=== PATIENT | male | born 1965 | race Caucasian/White ===

== ENCOUNTER 2016-08-20 10:18 | Emergency (ER) | payer BC ==
[~2016-08-20] VITALS: Ht 182.9 cm; Wt 104.3 kg
[~2016-08-20 10:18] MED LIST: GABAPENTIN300 MG ORAL; MEDROL4 M1 PO; PERCOCET 5-3251 EACH ORAL
[2016-08-20 10:39] VITALS: BP 159/113
[2016-08-20] MEDS ORDERED: Ketorolac 30mg Inj IM ONE (10:45)
[2016-08-20] MEDS ORDERED: Morphine Sulfate 4mg/ml Inj ONE (10:58)
[2016-08-20] MEDS ORDERED: Morphine Sulfate 4mg/ml Inj IM ONE (11:00)
[2016-08-20] MEDS ORDERED: LISINOPRIL5 MG ORAL (11:04)
[2016-08-20 12:00] VITALS: BP 146/98
[2016-08-20 12:04] VITALS: BP 146/98
--- NOTE | 2016-08-20 12:23 | Emergency Room Report ---
History of Present Illness General Chief Complaint: Upper Extremity Injury Source: Patient Present Illness HPI Patient presents emergency department today complaining of right upper extremity pain. Patient had a mechanical fall onto his right elbow. He has significant swelling of his right elbow. Pain limited range of motion. The pain is worse with movement. Patient has not had any trouble before. Symptoms noted to be moderate to severe. Denies any other trauma. No other modifying factors. No other associated signs and symptoms. No other complaints were noted. Allergies: Coded Allergies: No Known Allergies (Unverified , 06/27/13) Patient History Past Medical History: HTN Past Surgical History: none Pertinent Family History: none Social History: Denies: alcohol use, drug use, smoking Reviewed Nursing Documentation: PMH: Agreed, PSxH: Agreed Nursing Documentation-PMH Past Medical History: No History, Except For Hx Hypertension: Yes Review of Systems All Other Systems: negative except mentioned in HPI Physical Exam Vital Signs Date Time Temp Pulse Resp B/P Pulse Ox O2 Delivery O2 Flow Rate FiO2 08/20/16 10:25 98.2 114 20 159/113 95 Room Air Sp02 EP Interpretation: reviewed, normal General Appearance: normal inspection, well appearing, no apparent distress, alert Head: atraumatic Eyes: bilateral eye normal inspection ENT: normal ENT inspection, hearing grossly normal, normal voice Neck: normal inspection, full range of motion, supple, no bony tend Respiratory: normal inspection, lungs clear, normal breath sounds, no respiratory distress, no retraction, no wheezing Cardiovascular #1: regular rate, rhythm, no edema Gastrointestinal: normal inspection, normal bowel sounds, non tender, soft, no guarding, no hernia Genitourinary: no CVA tenderness Musculoskeletal: back normal, inflammation, swelling - left elbow swelling, good distal pulses Neurologic: normal inspection, alert, responsive, speech normal Psychiatric: normal inspection, judgement/insight normal, mood/affect normal Skin: normal inspection, normal color, no rash Procedures Splinting Splinting : Consent: Verbal Location: Right elbow Hand-Made Type: plaster Splint: poserior short Pre-Proc Neuro Vasc Exam: normal Post-Proc Neuro Vasc Exam: normal Patient Tolerated: Well Complications: None Medical Decision Making Diagnostic Impression: Primary Impression: Elbow fracture, right ER Course Patient presents emergency department today status post fall. Differential considerations include fracture dislocation versus strain. Given patient's presentation x-rays are indicated. 3 views of right elbow was obtained. X-ray interpretation: 3 views of right elbow. Indication trauma. Findings: Olecranon fracture with displacement and soft tissue swelling. No evidence dislocation. Interpretation: Acute fracture of the right elbow. Given the patient evidence of fracture patient require splinting. Patient was placed in a posterior mold splint. Patient tolerated the procedure without difficulty. Patient states that he has his own orthopedist to go to and does not require referral. Because patient was significant amount pain patient received Toradol and morphine arrival. He was given intramuscularly. He states he feels better from the injection. Patient is advised to follow up with primary doctor in 2-3 days and return the emergency room for any worsening symptoms and as needed. Last Vital Signs Date Time Temp Pulse Resp B/P Pulse Ox O2 Delivery O2 Flow Rate FiO2 08/20/16 12:04 98.2 86 20 146/98 95 Room Air Status: improved Disposition: HOME, SELF-CARE Condition: Stable Patient Instructions: Elbow Fracture, DANIELLE Ferguson M.D. Aug 20, 2016 12:23
[2016-08-20] MEDS ORDERED: IBUPROFEN600 MG ORAL (13:16)
[2016-08-20] MEDS ORDERED: NORCO 5-325 TA1 EACH ORAL (13:16)
[2016-08-20] MEDS ORDERED: PERCOCET 5-3251 EACH ORAL (13:42)
--- NOTE | 2016-09-01 14:09 | Diagnostic Imaging Report ---
Indications:TRAUMA Technique: Three or 4 views of the right elbow Comparison: None Findings:There is a comminuted fracture of the olecranon and proximal ulna. Fracture fragments are distracted by at least a centimeter. This involves the articular surface. No dislocation. Is overlying soft tissue swelling Impression:Positive for olecranon fracture Findings discussed by phone with Dr. Carpenter in the emergency room at the time of interpretation
== END 2016-08-20 12:05 | disposition home or self-care (01) ==
LOC: EMR 10:40
DX: S42.401A Unspecified fracture of lower end of right humerus, initial encounter for closed fracture (principal); W19.XXXA Unspecified fall, initial encounter; Y93.9 Activity, unspecified; Y92.9 Unspecified place or not applicable; I10 Essential (primary) hypertension
CPT/HCPCS: 29125; 73080; 96372; 99283; J1885; J2270

== ENCOUNTER 2017-05-02 03:07 | Emergency (ER) | payer BC ==
[~2017-05-02] VITALS: Ht 182.9 cm; Wt 115.2 kg
[~2017-05-02 03:07] MED LIST changes: +IBUPROFEN600 MG ORAL; +LISINOPRIL5 MG ORAL; +NORCO 5-325 TA1 EACH ORAL
[2017-05-02] MEDS ORDERED: Tetanus/Diptheria/Pertussis Vaccine 0.5ml Syr IM ONE (03:30)
[2017-05-02] MEDS ORDERED: BACITRACIN15 GM TOPIC (03:55)
[2017-05-02] MEDS ORDERED: KEFLEX500 MG ORAL (03:55)
[2017-05-02 04:00] VITALS: BP 166/94
[2017-05-02 04:14] VITALS: BP 166/94
--- NOTE | 2017-05-02 04:26 | Emergency Room Report ---
History of Present Illness General Chief Complaint: Laceration Source: Patient Present Illness HPI 52-year-old male presents ED status post laceration to the right leg. States that approximately 2 AM he cut his leg with a metal pipe. Tetanus unknown. Patient notes 6/10 pain, sharp, nonradiating. Denies any other injuries. No aggravating relieving factors. Denies any other associated symptoms Allergies: Coded Allergies: No Known Allergies (Unverified , 06/27/13) Patient History Past Medical History: HTN Past Surgical History: none Pertinent Family History: none Social History: Denies: smoking, alcohol use, drug use Immunizations: UTD Reviewed Nursing Documentation: PMH: Agreed, PSxH: Agreed Nursing Documentation-PMH Past Medical History: No Stated History Hx Hypertension: Yes Review of Systems All Other Systems: negative except mentioned in HPI Physical Exam Vital Signs Date Time Temp Pulse Resp B/P (MAP) Pulse Ox O2 Delivery O2 Flow Rate FiO2 05/02/17 03:17 98.1 111 18 166/94 98 Sp02 EP Interpretation: reviewed, normal General Appearance: no apparent distress, alert, GCS 15, non-toxic Head: normocephalic Eyes: bilateral eye normal inspection, bilateral eye PERRL ENT: normal ENT inspection Neck: normal inspection Respiratory: normal inspection Cardiovascular #1: normal inspection Gastrointestinal: normal inspection Rectal: deferred Genitourinary: no CVA tenderness Musculoskeletal: normal inspection Neurologic: alert, oriented x3, responsive, motor strength/tone normal, sensory intact, speech normal Psychiatric: judgement/insight normal, memory normal, mood/affect normal, no suicidal/homicidal ideation Skin: laceration - 2cm flap laceration to R anterior maldonado. no active bleeding Lymphatic: normal inspection Medical Decision Making Diagnostic Impression: Primary Impression: Laceration ER Course Hospital Course 52-year-old M presents to ED s/p laceration R maldonado Clinical course Patient placed on stretcher. After initial history and physical I ordered tetanus shot. Wound is irrigated. approximately 2 cm flap laceration however not deep. Patient declined sutures. Stating he wants only Steri-Strips. I will prescribe antibiotics and bacitracin Diagnosis - laceration Stable and discharged to home with prescription for Keflex, Bacitracin. wound Care instructions given. Followup with PMD. Return to ED if any signs of infection develop Last Vital Signs Date Time Temp Pulse Resp B/P (MAP) Pulse Ox O2 Delivery O2 Flow Rate FiO2 05/02/17 04:14 98.1 18 166/94 98 05/02/17 03:17 111 Status: improved Disposition: HOME, SELF-CARE Condition: Stable Scripts Bacitracin (Bacitracin) 28.4 Gm Oint...g. 1 APPLIC TOPIC THREE TIMES A DAY, #28.4 GM Prov: RAJI MAGALLANES M.D. 05/02/17 Cephalexin* (KEFLEX*) 500 Mg Capsule 500 MG ORAL Q6H, #28 CAP 0 Refills Prov: RAJI MAGALLANES M.D. 05/02/17 Referrals: NON PHYSICIAN (PCP) Patient Instructions: Nonsutured Laceration Care RAJI MAGALLANES M.D. May 02, 2017 04:25
== END 2017-05-02 04:14 | disposition home or self-care (01) ==
LOC: EMR 03:44
DX: S81.811A Laceration without foreign body, right lower leg, initial encounter (principal); W45.8XXA Other foreign body or object entering through skin, initial encounter; Y92.89 Other specified places as the place of occurrence of the external cause; Z23 Encounter for immunization; I10 Essential (primary) hypertension
CPT/HCPCS: 90471; 90715; 99283

== ENCOUNTER 2017-05-04 18:21 | Emergency (ER) | payer BC ==
[~2017-05-04] VITALS: Ht 182.9 cm; Wt 115.2 kg
[~2017-05-04 18:21] MED LIST changes: +BACITRACIN15 GM TOPIC; +KEFLEX500 MG ORAL
[2017-05-04] MEDS ORDERED: HYDROCHLOROTH12.5 M2 ORAL (18:31)
[2017-05-04 18:45] VITALS: BP 151/77
[2017-05-04] MEDS ORDERED: Ketorolac 30mg Inj IV ONE ×2 (19:30→22:00)
[2017-05-04 19:56] LABS: BASOPHILS % (AUTO) 0.8 % (0.0-2.0); EOSINOPHILS % (AUTO) 1.5 % (0.0-3.0); LYMPHOCYTES % (AUTO) 27.2 % (20.0-45.0); MEAN CORPUSCULAR HEMOGLOBIN 30.4 PG (27.0-31.0); MEAN CORPUSCULAR HGB CONC 30.7 G/DL (32.0-36.0); MEAN CORPUSCULAR VOLUME 99 FL (80-99); MEAN PLATELET VOLUME 5.1 FL (6.5-10.1); MONOCYTES % (AUTO) 9.3 % (1.0-10.0); NEUTROPHILS % (AUTO) 61.2 % (45.0-75.0); PLATELET COUNT 315 K/UL (150-450); RED BLOOD COUNT 4.55 M/UL (4.70-6.10); RED CELL DISTRIBUTION WIDTH 12.1 % (11.6-14.8); WHITE BLOOD COUNT 16.3 K/UL (4.8-10.8)
[2017-05-04 19:57] LABS: INR 0.9 (0.9-1.1); PROTHROMBIN TIME 9.5 SEC (9.30-11.50)
[2017-05-04 20:16] LABS: ALANINE AMINOTRANSFERASE 42 U/L (12-78); ALBUMIN/GLOBULIN RATIO 1.1 (1.0-2.7); ANION GAP 8 mmol/L (5-15); ASPARTATE AMINO TRANSFERASE 31 U/L (15-37); CALCIUM 10.5 MG/DL (8.5-10.1); CARBON DIOXIDE 29 MMOL/L (21-32); CHLORIDE 104 MMOL/L (98-107); CREATININE 1.7 MG/DL (0.55-1.30); GLOMERULAR FILTRATION RATE 42.5 mL/min (>60); POTASSIUM 5.3 MMOL/L (3.5-5.1); SODIUM 141 MMOL/L (136-145); TOTAL PROTEIN 7.3 G/DL (6.4-8.2)
[2017-05-04] MEDS ORDERED: Heparin 5000 units/ml inj IV ONE (22:00)
[2017-05-04] MEDS ORDERED: LORazepam 1mg tab ORAL ONE (22:00)
[2017-05-04] MEDS ORDERED: Heparin 25,000u/D5W 500ml 500 ML IV SCH (22:00)
[2017-05-04 22:15] VITALS: BP 151/77
--- NOTE | 2017-05-04 22:29 | Emergency Room Report ---
History of Present Illness General Chief Complaint: Lower Extremity Injury Source: Patient (Lew Lund M.D.) Source: Patient (GUZMAN GAINES) Present Illness HPI The patient is a 52-year-old male presenting for right lower leg pain and swelling. The patient was seen in this emergency department recently for her right leg laceration after he struck his leg on a metal object. He states that he then developed pain and swelling to the calf yesterday which has been worsening. He states that he has had a DVT earlier this year and this feels the same. He was placed on anticoagulation therapy for 3 months. He is not currently on any DVT prevention/treatment. Pain is described as an 8/10 dull ache it is worse with touch and walking. He denies any numbness or tingling. He denies any other symptoms including nausea, vomiting, fever, chills, shortness of breath, cough, hemoptysis, chest pain. He denies smoking, hormone therapy, or known clotting disorder. (GUZMAN GAINES) Allergies: Coded Allergies: No Known Allergies (Unverified , 06/27/13) Patient History Past Medical History: see triage record Pertinent Family History: none Reviewed Nursing Documentation: PMH: Agreed, PSxH: Agreed (GUZMAN GAINES) Nursing Documentation-PMH Past Medical History: No History, Except For Hx Hypertension: Yes (Lew Lund M.D.) Review of Systems All Other Systems: negative except mentioned in HPI (GUZMAN GAINES) Physical Exam Vital Signs Date Time Temp Pulse Resp B/P (MAP) Pulse Ox O2 Delivery O2 Flow Rate FiO2 05/04/17 18:24 97.2 103 16 151/77 97 Room Air (Lew Lund M.D.) Sp02 EP Interpretation: reviewed, normal General Appearance: no apparent distress, alert, GCS 15, non-toxic Head: normocephalic, atraumatic Eyes: bilateral eye normal inspection, bilateral eye PERRL ENT: hearing grossly normal, normal pharynx, no angioedema, normal voice Neck: full range of motion, supple/symm/no masses Respiratory: chest non-tender, lungs clear, normal breath sounds, speaking full sentences Cardiovascular #1: regular rate, rhythm, no edema Musculoskeletal: back normal, gait/station normal, normal range of motion, calf tenderness - R, swelling - R calf Neurologic: alert, oriented x3, responsive, motor strength/tone normal, sensory intact, speech normal Psychiatric: anxious Skin: normal color, no rash, warm/dry, well hydrated Lymphatic: no adenopathy (GUZMAN GAINES) Medical Decision Making PA Attestation Dr. Lund is my supervising physician. Patient management was discussed with my supervising physician (GUZMAN GAINES) Diagnostic Impression: Primary Impression: DVT (deep venous thrombosis) Qualified Codes: I82.401 - Acute embolism and thrombosis of unspecified deep veins of right lower extremity ER Course I saw this patient with the PA 52-year-old male with acute DVT right-sided, found on duplex study Patient has history of DVT, was on anticoagulation which was stopped many months ago No current anticoagulation Labs remarkable for leukocytosis and creatinine of 1.7 I spoke to the patient extensively on options, as patient did not want to stay in hospital. I advised patient that do to extensive DVT and throbbing pain, patient needed to be anticoagulated, Lovenox is not an option as patient had acute renal insufficiency I advised patient that I wanted to admit patient and start heparin Patient became extremely agitated, hostile, yelling at staff Patient stated that he wanted to leave and go to [facility] Patient ran out of the emergency room, with an IV in place, I calmly told patient that we needed to rid move the IV and he yelled curse words at myself and many of the staff Patient was followed on the street with security guards, he ripped out his own IV Patient came back to the emergency room as he was looking for his keys, again being very hostile toward staff Patient left AGAINST MEDICAL ADVICE. Was advised that Extensive DVT can lead to a PE which is life-threatening and BC significant morbidity mortality Patient verbalizes understanding and still wanted to leave (Lew Lund M.D.) ER Course The patient is a 52-year-old male presenting for right lower leg pain and swelling DDx considered but not limited to: Acute DVT, cellulitis, contusion, strain, lymphedema, phlebitis, among others PE: Afebrile. No tachypnea or tachycardia during exam. Pt is somewhat anxious R leg has marked swelling. TTP to mid calf. Noted pain with dorsiflexion. No skin changes. Skin is warm and dry. Venous duplex was done on the right lower leg which shows acute DVT which extends from the proximal popliteal vein. CBC: Leukocytosis CMP: Hyperkalemia with elevated BUN/CR Coags unremarkable The patient was notified of the results and initially became agitated and stated he wanted to leave. Myself and Dr. Mckeon explained the dangers of this and convinced him to stay. I then ordered acute DVT treatment and started admission process. The patient again became anxious and stated he would like to be treated with ativan. Before any therapy was started, he again became agitated and angry and Dr. Lund attempted to again explain the dangers of leaving. He then ran out of the ER. Please see Dr. Lund's note. Laboratory Tests Test 05/04/17 19:16 White Blood Count 16.3 K/UL (4.8-10.8) H Red Blood Count 4.55 M/UL (4.70-6.10) L Hemoglobin 13.8 G/DL (14.2-18.0) L Hematocrit 45.1 % (42.0-52.0) Mean Corpuscular Volume 99 FL (80-99) Mean Corpuscular Hemoglobin 30.4 PG (27.0-31.0) Mean Corpuscular Hemoglobin Concent 30.7 G/DL (32.0-36.0) L Red Cell Distribution Width 12.1 % (11.6-14.8) Platelet Count 315 K/UL (150-450) Mean Platelet Volume 5.1 FL (6.5-10.1) L Neutrophils (%) (Auto) 61.2 % (45.0-75.0) Lymphocytes (%) (Auto) 27.2 % (20.0-45.0) Monocytes (%) (Auto) 9.3 % (1.0-10.0) Eosinophils (%) (Auto) 1.5 % (0.0-3.0) Basophils (%) (Auto) 0.8 % (0.0-2.0) Prothrombin Time 9.5 SEC (9.30-11.50) Prothrombin Time INR 0.9 (0.9-1.1) PTT 22 SEC (23-33) L Sodium Level 141 MMOL/L (136-145) Potassium Level 5.3 MMOL/L (3.5-5.1) H Chloride Level 104 MMOL/L (98-107) Carbon Dioxide Level 29 MMOL/L (21-32) Anion Gap 8 mmol/L (5-15) Blood Urea Nitrogen 31 mg/dL (7-18) H Creatinine 1.7 MG/DL (0.55-1.30) H Estimate Glomerular Filtration Rate 42.5 mL/min (>60) Glucose Level 90 MG/DL (74-106) Calcium Level 10.5 MG/DL (8.5-10.1) H Total Bilirubin 0.2 MG/DL (0.2-1.0) Aspartate Amino Transferase (AST) 31 U/L (15-37) Alanine Aminotransferase (ALT) 42 U/L (12-78) Alkaline Phosphatase 60 U/L (46-116) Total Protein 7.3 G/DL (6.4-8.2) Albumin 3.9 G/DL (3.4-5.0) Globulin 3.4 g/dL Albumin/Globulin Ratio 1.1 (1.0-2.7) Lab Results Impression CBC: Leukocytosis CMP: Hyperkalemia with elevated BUN/CR Coags unremarkable (GUZMAN GAINES P.A.) EKG Diagnostic Results EP Interpretation: NSR. No ST elevateion Rate: normal Rhythm: NSR ST Segments: no acute changes ASA given to the pt in ED: No PA Scribe Text I reviewed the EKG with my SP. No acute findings. No ST elevation (GUZMAN GAINES P.A.) CT/MRI/US Diagnostic Results CT/MRI/US Diagnostic Results : Imaging Test Ordered: R leg venous duplex Impression Venous imaging reveals acute thrombus from the proximal to the distal popliteal vein, through the posterior tibial and peroneal veins. The anterior tibial veins are patent. The remainder of the deep venous system is within normal limits (GUZMAN GAINES P.A.) Last Vital Signs Date Time Temp Pulse Resp B/P (MAP) Pulse Ox O2 Delivery O2 Flow Rate FiO2 05/04/17 19:57 97.2 05/04/17 18:45 67 20 151/77 97 Room Air ([email or web address]) Status: improved (GUZMAN GAINES) Disposition: ELOPED Condition: Serious Referrals: NOT CHOSEN URSULA/,REFERRING (PCP) Lew Lund M.D. May 04, 2017 22:29 GUZMAN GAINES May 04, 2017 23:08
--- NOTE | 2017-05-05 08:56 | Diagnostic Imaging Report ---
APPROVED REPORT CPT Code: 09282 Present Symptoms Lower Extremity Pain: Right Comments: R/O DVT. RIGHT LEG: Venous imaging reveals acute thrombus from the proximal to the distal popliteal vein, through the posterior tibial and peroneal veins. The anterior tibial veins are patent. The remainder of the deep venous system is within normal limits. The greater saphenous vein is also within normal limits. LOBO Jerome was notified of abnormal results at 21:42 hrs.
--- NOTE | 2017-05-05 15:01 | Cardiology Report ---
APPROVED REPORT EKG Measurement Heart [id number] Normal sinus rhythm Normal ECG
== END 2017-05-04 22:15 | disposition left against medical advice (07) ==
LOC: EMR 19:10
DX: I82.431 Acute embolism and thrombosis of right popliteal vein (principal)
CPT/HCPCS: 36415; 80053; 85025; 85610; 85730; 93005; 93971; 96374; 99284; J1885